=== PATIENT | female | born 1975 | race Caucasian/White ===

== ENCOUNTER 2020-12-21 05:58 | Observation (INO) ==
[2020-12-21] MEDS ORDERED: *HR* Promethazine 25 MG/ML VIAL IM PRN (07:55)
[2020-12-21] MEDS ORDERED: Ondansetron 4 MG/2 ML VIAL IVP PRN (07:55)
[2020-12-21] MEDS ORDERED: Naloxone 0.4 MG/ML INJ IVP PRN (07:55)
[2020-12-21] MEDS ORDERED: Perflutren Lipid Microsphere 1.3 ML in 0.9 % Sodium Chloride 8.7 ML IVP PRN (07:58)
[2020-12-21] MEDS ORDERED: Morphine Sulfate 2 MG/ML SYRINGE IVP PRN ×3 (08:00→10:44)
[2020-12-21] MEDS ORDERED: GI Cocktail 40 ML EACH PO ONE ×2 (08:29→11:15)
[2020-12-21] MEDS ORDERED: Nitroglycerin 0.4 MG TAB.SUBL SL PRN (10:44)
[2020-12-21] MEDS ORDERED: Sucralfate 1 GM TABLET PO ONE (11:15)
[2020-12-21] MEDS ORDERED: Isovue-370 500 ML BOTTLE IVP ONE (11:50)
[2020-12-21] MEDS ORDERED: *HR* Heparin 5,000 UNIT/ML VIAL IVP PRN ×2 (13:32)
[2020-12-21] MEDS ORDERED: *HR* Heparin 5,000 UNIT/ML VIAL IVP ONE (13:32)
[2020-12-21] MEDS ORDERED: Heparin 25,000UNIT/250ML 1/2NS 25,000 UNIT/250 ML IV.SOLN IVC SCH (13:45)
[2020-12-21] MEDS: Aspirin Enteric Coated 81 MG Tablet PO SCH (13:57)
[2020-12-21] MEDS: carvediloL 6.25 MG TABLET PO SCH (16:14)
[2020-12-21] MEDS ORDERED: MethylPREDNISolone 40 MG/ML VIAL IVP STA (16:35)
[2020-12-21] MEDS: Racepinephrine Neb 0.5 ML VIAL IH STA ×2 (16:51→16:54)
[2020-12-21] MEDS ORDERED: EPINEPHrine 1 MG/ML VIAL IM STA (16:53)
[2020-12-21] MEDS: Famotidine 20 MG/2 ML VIAL IVP SCH (17:05)
[2020-12-21] MEDS: MetroNIDAZOLE 500 MG/100 ML 500 MG/100 ML BAG IVPB SCH (17:05)
[2020-12-21] MEDS ORDERED: EPINEPHrine 1 MG/ML VIAL IM PRN (20:24)
[2020-12-21] MEDS: predniSONE 20 MG TABLET PO SCH (20:46)
[2020-12-22] MEDS: MetroNIDAZOLE 500 MG/100 ML 500 MG/100 ML BAG IVPB SCH ×3 (00:04→16:33)
[2020-12-22 02:52] LABS: Hematocrit 40.1 % (35.3-44.9); Hemoglobin 13.3 g/dL (11.5-15.4); Immature Granulocytes % 0.4 % (0-4); Lymphocytes # 0.5 K/mcL (0.6-4.6); Lymphocytes % 5.8 %; Mean Corpuscular HGB Conc 33.2 g/dL (31.6-35.5); Mean Corpuscular Hemoglobin 28.5 pg (28.0-33.3); Mean Corpuscular Volume 86.1 fL (83.0-100.0); Mean Platelet Volume 8.9 fL (9.4-12.4); Monocytes # 0.1 K/mcL (0.0-1.3); Monocytes % 0.6 %; Neutrophils # 7.4 K/mcL (1.6-8.9); Platelet Count 321 K/mcL (140-400); Red Blood Count 4.66 M/mcL (3.82-4.97); Red Cell Distribution Width 12.4 % (11.5-14.5); Segmented Neutrophils % 93.2 %; White Blood Count 7.9 K/mcL (4.3-11.1)
[2020-12-22 04:19] LABS: BUN/Creatinine Ratio 9 (6-26); Blood Urea Nitrogen 7 mg/dL (6-20); Calcium 8.8 mg/dL (8.6-10.3); Carbon Dioxide 21 mEq/L (23-29); Chloride 109 mEq/L (98-107); Glucose 152 mg/dL (70-105); Osmolality,Calculated 285 (280-300); Potassium 4.3 mEq/L (3.5-5.1); Sodium 137 mEq/L (136-145); eGFR For African Americans > 60 (> 60); eGFR For Non-African Americans > 60 (> 60)
[2020-12-22] MEDS: Famotidine 20 MG/2 ML VIAL IVP SCH ×2 (06:26→17:26)
[2020-12-22] MEDS ORDERED: cefOXitin 1,000 MG, 0.9 % Sodium Chloride 1,000 ML IR ONE ×2 (07:00→16:30)
[2020-12-22] MEDS ORDERED: *HR* Propofol 200 MG/20 ML VIAL IVP ONE ×2 (07:31→13:49)
[2020-12-22] MEDS ORDERED: Lidocaine -MPF 2% 2 ML VIAL ONE ×2 (07:31→13:49)
[2020-12-22] MEDS: Aspirin Enteric Coated 81 MG Tablet PO SCH (07:42)
[2020-12-22] MEDS: predniSONE 20 MG TABLET PO SCH (08:21)
[2020-12-22] MEDS: carvediloL 6.25 MG TABLET PO SCH ×2 (08:22→17:27)
[2020-12-22] MEDS ORDERED: Multivit/Ca/Min/Fe/FA 1 TAB TABLET PO SCH (09:00)
[2020-12-22] MEDS ORDERED: lisinopriL 5 MG TABLET PO SCH (09:00)
[2020-12-22] MEDS ORDERED: Isovue-300 50ML VIAL ONE (13:46)
[2020-12-22] MEDS ORDERED: Lidocaine HCL 4 ML Topical Solution (Laryng-O-Jet Kit Sterile Pak) TP ONE (13:49)
[2020-12-22] MEDS ORDERED: *HR* FentaNYL (PF) 100 MCG/2 ML VIAL ONE ×2 (13:49→14:18)
[2020-12-22] MEDS ORDERED: *HR* Rocuronium Bromide 50 MG/5 ML VIAL ONE (13:49)
[2020-12-22] MEDS ORDERED: *HR* Midazolam HCl 2 MG/2 ML VIAL ONE (13:49)
[2020-12-22] MEDS ORDERED: Ondansetron 4 MG/2 ML VIAL ONE (13:49)
[2020-12-22] MEDS ORDERED: Ketorolac 30 MG/ML VIAL ONE (14:14)
[2020-12-22] MEDS ORDERED: *HR* HYDROMORPHONE 2 MG/ML VIAL ONE (14:39)
[2020-12-22] MEDS ORDERED: Sugammadex Sodium 200 MG/2 ML VIAL IV ONE (14:43)
[2020-12-22] MEDS ORDERED: *HR* OxyCODONE Immed Rel 5 MG TABLET PO PRN (15:36)
[2020-12-22] MEDS ORDERED: *HR* HYDROmorphone (PF) 1 MG/ML SYRINGE IVP PRN (15:36)
[2020-12-22] MEDS ORDERED: Acetaminophen IV 1,000 MG/100 ML BAG IVPB ONE (15:36)
[2020-12-22] MEDS ORDERED: Famotidine 20 MG/2 ML VIAL IVP ONE (15:36)
[2020-12-22] MEDS ORDERED: Promethazine 6.25 MG in Water for inj. (sterile) 20 ML IVPB PRN (15:36)
[2020-12-22] MEDS ORDERED: *HR* Labetalol 20 MG/4 ML SYRINGE IVP PRN (15:36)
[2020-12-22] MEDS ORDERED: *HR* HYDROmorphone 2 MG TABLET PO PRN (15:36)
[2020-12-22] MEDS ORDERED: Pregabalin 75 MG CAPSULE PO ONE (15:36)
[2020-12-22] MEDS ORDERED: Ondansetron 4 MG/2 ML VIAL IVP PRN (16:30)
[2020-12-22] MEDS ORDERED: Nitroglycerin 0.4 MG TAB.SUBL SL PRN (16:30)
[2020-12-22] MEDS ORDERED: *HR* Promethazine 25 MG/ML VIAL IM PRN (16:30)
[2020-12-22] MEDS ORDERED: Morphine Sulfate 2 MG/ML SYRINGE IVP PRN (16:30)
[2020-12-22] MEDS ORDERED: Naloxone 0.4 MG/ML INJ IVP PRN (16:30)
[2020-12-22] MEDS ORDERED: EPINEPHrine 1 MG/ML VIAL IM PRN (16:30)
[2020-12-23] MEDS: MetroNIDAZOLE 500 MG/100 ML 500 MG/100 ML BAG IVPB SCH ×2 (00:18→08:16)
[2020-12-23] MEDS ORDERED: Acetaminophen 325 MG TABLET PO ONE (00:24)
[2020-12-23] MEDS ORDERED: Acetaminophen IV 1,000 MG/100 ML BAG IVPB ONE (06:19)
[2020-12-23] MEDS: Famotidine 20 MG/2 ML VIAL IVP SCH (06:33)
[2020-12-23 06:39] LABS: Basophils % 0.1 %; Hematocrit 39.5 % (35.3-44.9); Hemoglobin 13.2 g/dL (11.5-15.4); Immature Granulocytes % 0.3 % (0-4); Lymphocytes # 1.1 K/mcL (0.6-4.6); Lymphocytes % 7.8 %; Mean Corpuscular HGB Conc 33.4 g/dL (31.6-35.5); Mean Corpuscular Hemoglobin 28.9 pg (28.0-33.3); Mean Corpuscular Volume 86.4 fL (83.0-100.0); Mean Platelet Volume 9.5 fL (9.4-12.4); Monocytes # 0.7 K/mcL (0.0-1.3); Monocytes % 5.3 %; Neutrophils # 11.9 K/mcL (1.6-8.9); Platelet Count 331 K/mcL (140-400); Red Blood Count 4.57 M/mcL (3.82-4.97); Red Cell Distribution Width 12.7 % (11.5-14.5); Segmented Neutrophils % 86.5 %; White Blood Count 13.7 K/mcL (4.3-11.1)
[2020-12-23 06:58] LABS: BUN/Creatinine Ratio 19 (6-26); Blood Urea Nitrogen 17 mg/dL (6-20); Calcium 8.8 mg/dL (8.6-10.3); Carbon Dioxide 23 mEq/L (23-29); Chloride 107 mEq/L (98-107); Glucose 164 mg/dL (70-105); Osmolality,Calculated 291 (280-300); Potassium 3.8 mEq/L (3.5-5.1); Sodium 138 mEq/L (136-145); eGFR For African Americans > 60 (> 60); eGFR For Non-African Americans > 60 (> 60)
[2020-12-23 07:19] VITALS: BP 137/89
[2020-12-23] MEDS: carvediloL 6.25 MG TABLET PO SCH (07:56)
[2020-12-23] MEDS ORDERED: Aspirin Enteric Coated 81 MG Tablet PO SCH (09:00)
[2020-12-23] MEDS ORDERED: predniSONE 20 MG TABLET PO SCH (09:00)
[2020-12-23] MEDS ORDERED: Multivit/Ca/Min/Fe/FA 1 TAB TABLET PO SCH (09:00)
[2020-12-24] MEDS ORDERED: Ergocalciferol (VIT D2) 50,000 UNIT (1.25MG) CAP PO SCH ×2 (09:00)
== END 2020-12-23 10:39 | disposition home or self-care (01) ==
LOC: CDU → SUATTDRO 07:03 → CDU 07:55 → 3BNU 19:33
PROVIDERS: ADMIT Student in an Organized Health Care Education/Training Program; ATTEND Nurse Practitioner